=== PATIENT | male | born 1985 | race Hispanic/Latino ===

== ENCOUNTER 2023-03-08 18:00 | Emergency (ER) | payer OTHER ==
--- OUTSIDE RECORDS SUMMARY | 2023-03-08 18:03 | XMS REPORT | Continuity of Care Document ---
:1985 Author Organization [facility] t Address [address] [id number] Care Team Providers Name Role Phone Mariana Sainz Primary Care Physician Loy Grier MD Attending Clinician Mariana Sainz Attending Clinician Tete Lott RN Attending Clinician Unavailable MAYRA DAMON Attending Clinician Unavailable Only, Benjamin Db Test Attending Clinician Unavailable Mayra Benitez Attending Clinician MARIANA SAHA Attending Clinician Unavailable Lab, Ang - Db Attending Clinician Unavailable Doctor Unassigned, [place] Attending Clinician Unavailable GINO ECKERT Attending Clinician Unavailable Vaccine, [place] Samreeni Attending Clinician Unavailable Gino Kulkarni Attending Clinician JACQUELYN PAYTON Attending Clinician Unavailable Jacquelyn Payton MD Attending Clinician Provider, [facility] Attending Clinician Unavailable Elzbieta Kimball RN Attending Clinician Unavailable Lab, [facility] Fam Pob I Attending Clinician Unavailable Payers Payer Name Policy Type Policy Number Effective Date Expiration Date S ource Problems Condition Condition Condition Status Onset Resolution Last Treating Co mments Source Name Details Category Date Date Treatment Clinician Date No known No known Disease Unive rs active active ity of problems problems [facility] Allergies, Adverse Reactions, Alerts Allergy Allergy Status Severity Reaction(s) Onset Inactive Treating Comm ents Source Name Type Date Date Clinician IODINE DRUG Active Swelling Univers INGREDI 06-15 ity of 00:00: [place] 00 Medical Branch SHRIMP DRUG Active Swelling Univers INGREDI 06-15 ity of 00:00: [place] 00 Medical Branch Iodine Propensi Active Swelling Univer s ty to 06-15 ity of adverse 00:00: [place] reaction 00 Medical s Branch Shrimp Propensi Active Swelling Univer s ty to 06-15 ity of adverse 00:00: [place] reaction 00 Medical s Branch Social History Social Habit Start Date Stop Date Quantity Comments Source History SDOH University o f Alcohol Frequency [facility] edical Branch History SDOH University o f Alcohol Std [place] Medical Drinks Branch History SDMN University o f Alcohol Binge [place] Medic al Branch Alcohol intake 2022-04-10 2022-04-10 .29 /d University of 00:00:00 00:00:00 [facility] Exposure to 2022-03-19 2022-03-29 Not sure University of SARS-CoV-2 00:00:00 09:29:00 [facility] (event) Branch Tobacco use and 2016-06-15 2016-06-15 Smokeless tobacco Un iversity of exposure 00:00:00 00:00:00 non-user [facility] Alcohol Comment 2016-06-15 2016-06-15 occ Universit y of 00:00:00 00:00:00 [facility] History of 2013-06-15 Cigarette Smoker Universi ty of tobacco use 00:00:00 [facility] Sex [birth year] Universit y of 00:00:00 00:00:00 [facility] Smoking Status Start Date Stop Date Source Ex-smoker 2016-06-15 00:00:00 2016-06-15 00:00:00 Universi ty of [facility] Medications Ordered Filled Start Stop Current Ordering Indication Dosage Frequency Signature Comments Components Source Medication Medication Date Date Medication? Clinician (SIG) Name Name LOSARTAN 50 2021-09 Yes [id number] TAKE 1 Univers mg tablet 1-21 TABLET BY ity o f 00:00: MOUTH [place] 00 EVERY Medical MORNING Branch LOSARTAN 50 2021-0 Yes [id number] 50mg TAKE 1 Univers mg tablet 7-13 TABLET BY ity o f 00:00: MOUTH IN [place] 00 THE Medical MORNING Branch LOSARTAN 50 2022-0 Yes [id number] 50mg TAKE 1 Univers mg tablet 7-13 TABLET BY ity o f 00:00: MOUTH IN [place] 00 THE Medical MORNING Branch LOSARTAN 50 2021-0 2021- No [id number] 50mg TAKE 1 Univers mg tablet 7-13 11-21 TABLET BY ity of 00:00: 00:00 MOUTH IN [place] 00 :00 THE Medical MORNING Branch losartan 50 0 Yes [id number] 50mg Take 1 Univers mg tablet 7-12 tablet by ity o f 00:00: mouth in [place] 00 the Medical morning. Branch losartan 50 0 2021- No [id number] 50mg Take 1 Univers mg tablet 7-12 07-13 tablet by ity of 00:00: 00:00 mouth in [place] 00 :00 the Medical morning. Branch losartan 50 0 Yes [id number] 50mg Take 1 Univers mg tablet 6-10 tablet by ity o f 00:00: mouth [place] 00 daily. Medical Branch losartan 50 0 Yes [id number] 50mg Take 1 Univers mg tablet 6-10 tablet by ity o f 00:00: mouth [place] 00 daily. Medical Branch losartan 50 0 Yes [id number] 50mg Take 1 Univers mg tablet 6-10 tablet by ity o f 00:00: mouth [place] 00 daily. Medical Branch losartan 50 2021-0 2021- No [id number] 50mg Take 1 Univers mg tablet 6-10 07-12 tablet by ity of 00:00: 00:00 mouth [place] 00 :00 daily. Medical Branch losartan 50 2021-0 Yes [id number] 50mg Take 1 Univers mg tablet 4-22 tablet by ity o f 00:00: mouth [place] 00 daily. Medical Branch losartan 50 0 Yes [id number] 50mg Take 1 Univers mg tablet 4-22 tablet by ity o f 00:00: mouth [place] 00 daily. Medical Branch losartan 50 2021-0 Yes [id number] 50mg Take 1 Univers mg tablet 4-22 tablet by ity o f 00:00: mouth [place] 00 daily. Medical Branch losartan 50 2021-0 2021- No [id number] 50mg Take 1 Univers mg tablet 4-22 06-10 tablet by ity of 00:00: 00:00 mouth [place] 00 :00 daily. Medical Branch Immunizations Ordered Filled Immunization Date Status Comments [facility] e Immunization Name Name SARS-COV-2 COVID-19 2021-06-15 Completed Unive rsity of PFIZER VACCINE 00:00:00 [facility] SARS-COV-2 COVID-19 2021-06-15 Completed Unive rsity of PFIZER VACCINE 00:00:00 [facility] Branch SARS-COV-2 COVID-19 2021-06-15 Completed Unive rsity of PFIZER VACCINE 00:00:00 [facility] Branch SARS-COV-2 COVID-19 2021-06-15 Completed Unive rsity of PFIZER VACCINE 00:00:00 [facility] Branch SARS-COV-2 COVID-19 2021-06-15 Completed Unive rsity of PFIZER VACCINE 00:00:00 [facility] Branch SARS-COV-2 COVID-19 2021-06-15 Completed Unive rsity of PFIZER VACCINE 00:00:00 [facility] SARS-COV-2 COVID-19 2021-06-15 Completed Unive rsity of PFIZER VACCINE 00:00:00 [facility] Branch SARS-COV-2 COVID-19 2021-06-15 Completed Unive rsity of PFIZER VACCINE 00:00:00 [facility] Branch SARS-COV-2 COVID-19 2021-06-15 Completed Unive rsity of PFIZER VACCINE 00:00:00 [facility] Branch SARS-COV-2 COVID-19 2021-06-15 Completed Unive rsity of PFIZER VACCINE 00:00:00 [facility] SARS-COV-2 COVID-19 2021-05-25 Completed Unive rsity of PFIZER VACCINE 00:00:00 [facility] Branch SARS-COV-2 COVID-19 2021-05-25 Completed Unive rsity of PFIZER VACCINE 00:00:00 [facility] Branch SARS-COV-2 COVID-19 2021-05-25 Completed Unive rsity of PFIZER VACCINE 00:00:00 [facility] Branch SARS-COV-2 COVID-19 2021-05-25 Completed Unive rsity of PFIZER VACCINE 00:00:00 [facility] SARS-COV-2 COVID-19 2021-05-25 Completed Unive rsity of PFIZER VACCINE 00:00:00 [facility] Branch SARS-COV-2 COVID-19 2021-05-25 Completed Unive rsity of PFIZER VACCINE 00:00:00 [facility] SARS-COV-2 COVID-19 2021-05-25 Completed Unive rsity of PFIZER VACCINE 00:00:00 [facility] SARS-COV-2 COVID-19 2021-05-25 Completed Unive rsity of PFIZER VACCINE 00:00:00 [facility] SARS-COV-2 COVID-19 2021-05-25 Completed Unive rsity of PFIZER VACCINE 00:00:00 [facility] SARS-COV-2 COVID-19 2021-05-25 Completed Unive rsity of PFIZER VACCINE 00:00:00 [facility] TDAP 2015-01-19 Completed University of 00:00:00 [facility] TDAP 2015-01-19 Completed University of 00:00:00 [facility] TDAP 2015-01-19 Completed University of 00:00:00 [facility] TDAP 2015-01-19 Completed University of 00:00:00 [facility] TDAP 2015-01-19 Completed University of 00:00:00 [facility] TDAP 2015-01-19 Completed University of 00:00:00 [facility] TDAP 2015-01-19 Completed University of 00:00:00 [facility] TDAP 2015-01-19 Completed University of 00:00:00 [facility] TDAP 2015-01-19 Completed University of 00:00:00 [facility] TDAP 2015-01-19 Completed University of 00:00:00 [facility] Vital Signs Vital Name Observation Time Observation Value Comments Source Systolic blood 2022-01-19 18:52:00 159 mm[Hg] Univer sity of [place] pressure [facility] Branch Diastolic blood 2022-01-19 18:52:00 100 mm[Hg] Unive rsity of [place] [facility] Oxygen saturation 2022-01-19 18:16:00 99 /min [facility] in Arterial blood Medical Br [facility] by Pulse oximetry Heart rate 2022-01-19 18:16:00 81 /min [facility] Body height 2022-01-19 18:16:00 170.2 cm [facility] Body weight 2022-01-19 18:16:00 109.09 kg [facility] BMI 2022-01-19 18:16:00 37.67 kg/m2 [facility] Procedures This patient has no known procedures. Encounters Start End Encounter Admission Attending Care Care Encounter Source Date/Time Date/Time Type Type Clinicians Facility Department ID 2022-08-20 2022-08-20 [facility] [id number] [id number] Univers 00:00:00 00:00:00 Loy [facility] 350.1.13.10 it y [facility] 4.2.7.2.686 Zack as GINETTE?BLEA [phone] [address] MEDICAL OFFICE [facility] 2022-05-13 2022-05-13 [facility] [id number] Univers 00:00:00 00:00:00 Loy HEALTH 350.1.13.10 it y of [place] 4.2.7.2.686 Zack as GINETTE?BLEA [id number] [address] OFFICE [facility] 2022-04-10 2022-04-10 [facility] 1.2.840.114 [id number] Univers 00:00:00 00:00:00 Mariana HEALTH 350.1.13.10 it y of [place] 4.2.7.2.686 Zack as GINETTE?BLEA [phone] [address] OFFICE [facility] 2022-04-10 2022-04-10 [facility] [id number] Univers 00:00:00 00:00:00 Loy HEALTH 350.1.13.10 it y of [place] 4.2.7.2.686 Zack as GINETTE?BLEA [id number] [address] MEDICAL OFFICE [facility] 2022-03-30 2022-03-30 DEMI Pinon 1.2.840.114 [id number] Univers 00:00:00 00:00:00 (Out) Tete LUGO 350.1.13.10 it y of HOSPITAL 4.2.7.2.686 Zack as [phone] [address] 2022-03-29 2022-03-29 Outpatient Faizan DAMON [facility] [id number] Univers 09:30:00 10:00:26 MAYRA ity [facility] 2022-03-29 2022-03-29 Laboratory Only, Ang Db Test [facility] 1.2.8 40.114 [id number] Univers 09:30:00 09:45:00 Only GreenMayra HEALTH 350.1.13.10 ity of [place] 4.2.7.2.686 Zack as GINETTE?BLEA [id number] Mi bettie [place] [address] [facility] OFFICE [facility] 2022-03-09 2022-03-09 Refill Maria A [facility] 1.2.840.114 [id number] Univers 00:00:00 00:00:00 Mariana HEALTH 350.1.13.10 it y of [place] 4.2.7.2.686 Zack as GINETTE?BLEA [id number] Mi bettie ORTIZ [address] [facility] 2022-02-16 2022-02-16 Outpatient R MARIA A [facility] [id number] Univers 08:30:00 08:30:00 MARIANAJULIAN flores [facility] 2022-02-16 2022-02-16 Outpatient R MARIA [facility] [id number] Univers 08:30:00 08:30:00 MARIANA ulices [facility] 2022-01-26 2022-01-26 Rec[employer]ing [facility] Lab, Ang - Db [facility] 1.2.840.1 [id number] Univers 08:30:00 08:45:00 Visit Mariana Saha 350.1.13.10 ity of [place] 4.2.7.2.686 Zack as GINETTE?BLEA [phone] Mi bettie [facility] [address] [facility] OFFICE [facility] 2022-01-26 2022-01-26 Outpatient R MARIA A [facility] [id number] Univers 08:30:00 08:30:00 MARIANA sandra [facility] 2022-01-26 2022-01-26 Outpatient R MARIA [facility] [id number] Univers 08:30:00 08:30:00 MARIANA sandra [facility] 2022-01-19 2022-01-19 Outpatient R MARIA [facility] [id number] Univers 13:00:00 13:51:38 MARIANA ity of [facility] 2022-01-19 2022-01-19 Office Maria A [facility] 1.2.840.114 [id number] Univers 13:00:00 13:51:38 Visit Mariana [facility] 350.1.13.10 it y of [place] 4.2.7.2.686 Zack as GINETTE?BLEA [phone] Mi dical [address] MEDICAL OFFICE BUILDING 2022-01-19 2022-01-19 Orders Doctor DEMI 1.2.840.114 [id number] Univers 00:00:00 00:00:00 Only Unassigned, BRITTNEY 350.1.13.10 ity of [place] [facility] 4.2.7.2.686 Zack as [phone] [facility] [address] [place] 2021-06-15 2021-06-15 Outpatient R RODRÍGUEZ [facility] [id number] Univers 09:00:00 09:31:28 sandra ASCENCIO of [facility] 2021-06-15 2021-06-15 Imm/Inj Vaccine, [facility] [place] 1.2.840.114 [id number] Univers 08:48:18 08:58:18 Visit Gino Eckert 350.1.13. 10 ity of Pediatric 4.2.7.2.686 [facility] [phone] [facility] [address] [place] 2021-05-25 2021-05-25 Outpatient R TATA [facility] [id number] Univers 10:20:00 11:26:33 JACQUELYN flores [facility] 2021-05-25 2021-05-25 Imm/Inj Vaccine, [facility] [place] 1.2.840.114 [id number] Univers 11:06:36 11:16:36 Visit Jacquelyn Payton 350.1.13. 10 ity of [facility] 4.2.7.2.686 [facility] [id number] [address] 2020-05-27 2020-05-27 Letter Provider, [facility] [id number] Univers 00:00:00 00:00:00 (Out) Ang [facility] 350.1.13.10 ity of Care Surgical 4.2.7.2.686 Zack as Specialti [phone] Mi dical es [address] [facility] 2020-05-18 2020-05-18 Letter DEMI Kimball 1.2.840.114 [id number] Univers 00:00:00 00:00:00 (Out) Elzbieta LUGO 350.1.13.10 it y of [facility] 4.2.7.2.686 Zack as [id number] [address] 2020-05-16 2020-05-16 Laboratory Lab, [facility] Po I [facility] 1.2. 840.114 [id number] Univers 13:17:11 13:37:11 Only Mariana S[facility] 350.1.13.10 ity of [place] 4.2.7.2.686 Zack as Professio [phone] Mi dical nal [address] [place] Office Building [facility] 2020-05-16 2020-05-16 Outpatient R [facility] [id number] Univers 13:20:00 13:20:00 ity of [facility] 2020-05-06 2020-05-06 Laboratory Lab, [facility] I [facility] 1.2. 840.114 [id number] Univers 16:41:18 17:01:18 Only Mariana Saha 350.1.13.10 ity of [place] 4.2.7.2.686 Zack as Professio [phone] Mi dical nal [address] [place] [address] [facility] 2020-05-06 2020-05-06 Outpatient R [facility] [id number] Univers 16:40:00 16:40:00 ity of [facility] Results This patient has no known results.
[2023-03-08 20:09] LABS: Specific Gravity 1.029 (1.005-1.030); Urine Bacteria <20 /HPF (<20); Urine Bilirubin NEGATIVE (Negative); Urine Blood 2+ (Negative); Urine Clarity Extremely Turbid (Clear); Urine Color Yellow (Yellow); Urine Glucose NEGATIVE (Negative); Urine Mucus 2+ /HPF (None Seen); Urine Protein 1+ (Negative); Urine RBC >50 /HPF (None Seen); Urine Sperm Present (None Seen); Urine Urobilinogen 2+ (Normal)
--- NOTE | 2023-03-08 20:17 | EDPHYS ---
Physician Documentation [facility] Name: Stanley Hutchins Age: 37 yrs Sex: Male : 1985 Arrival Date: 03/08/2023 Time: 18:00 Bed 9 Private MD: ED Physician Mitul Tyler HPI: 03/08 20:43 This 37 yrs old Male presents to ER via Ambulatory with complaints of Back ms3 Pain. 20:43 37-year-old male with past medical history of hypertension, hyperlipidemia presents for ms3 left-sided lower back pain that he rates currently a 4/10. Patient states he took 800 mg ibuprofen with relief of his pain. Patient states his pain was a 9/10 and the ibuprofen decreased the pain to a 4/10. Patient states he did move heavy objects in his attic yesterday. Patient denies bowel or bladder incontinence, fevers, chills, nausea, vomiting, numbness, urinary symptoms. Historical: - Allergies: 18:15 No Known Allergies; ld1 - Home Meds: 18:15 losartan 100 mg oral tablet once [Active]; ld1 18:17 fenofibrate 40 mg oral tablet once [Active]; phentermine 37.5 mg oral capsule once ld1 [Active]; - PMHx: 18:15 Hypertensive disorder; ld1 18:17 Hypercholesterolemia; ld1 - PSHx: 18:15 None; ld1 - Immunization history:: Adult Immunizations up to date, Client reports receiving the 2nd dose of the Covid vaccine. - Social history:: Smoking status: Patient denies any tobacco usage or history of. Patient/guardian denies using alcohol. ROS: 20:43 Constitutional: Negative for fever, and chills. Neck: Negative for injury, pain, and ms3 swelling, Cardiovascular: Negative for chest pain, and palpitations. Respiratory: Negative for shortness of breath, cough, wheezing, and pleuritic chest pain, Abdomen/GI: Negative for abdominal pain, nausea, vomiting, diarrhea, and constipation. 20:43 : Negative for injury, bleeding, discharge, and swelling, Skin: Negative for injury, rash, and discoloration, Neuro: Negative for headache, weakness, numbness, tingling. 20:43 Back: Positive for Low back pain. Exam: 20:43 Constitutional: This is a well developed, well nourished patient who is awake, alert, ms3 and in no acute distress. Head/Face: Normocephalic, atraumatic. Neck: Trachea midline, no cervical lymphadenopathy. Supple, full range of motion without nuchal rigidity, or vertebral point tenderness. No Meningismus. Chest/axilla: Normal chest wall appearance and motion. Nontender with no deformity. Cardiovascular: Regular rate and rhythm with a normal S1 and S2. No gallops, murmurs, or rubs. Normal PMI, no JVD. No pulse deficits. Respiratory: Lungs have equal breath sounds bilaterally, clear to auscultation and percussion. No rales, rhonchi or wheezes noted. No increased work of breathing, no retractions or nasal flaring. Abdomen/GI: Soft, non-tender, with normal bowel sounds. No distension or tympany. No guarding or rebound. No evidence of tenderness throughout. Back: No spinal tenderness. No costovertebral tenderness. Full range of motion. Skin: Warm, dry with normal turgor. Normal color with no rashes, no lesions, and no evidence of cellulitis. MS/ Extremity: Pulses equal, no cyanosis. Neurovascular intact. Full, normal range of motion. Vital Signs: 18:17 BP 136 / 97; Pulse 88; Resp 18; Temp 97.6(TE); Pulse Ox 100% on R/A; Weight 98.43 kg; ld1 Height 5 ft. 7 in. ; Pain 4/10; 18:17 Body Mass Index 33.99 (98.43 kg, 170.18 cm) ld1 18:17 Pain Scale: Adult ld1 MDM: 18:30 Patient medically screened. ms3 20:43 Differential diagnosis: sprain, Ureterolithiasis. Data reviewed: vital signs, nurses ms3 notes, and as a result, I will discharge patient. Counseling: I had a detailed discussion with the patient and/or guardian regarding: the historical points, exam findings, and any diagnostic results supporting the discharge/admit diagnosis, lab results, the need for outpatient follow up, to return to the emergency department if symptoms worsen or persist or if there are any questions or concerns that arise at home. ED course: Patient left the emergency department prior to discharge papers being handed to him. Patient was called and verbal discharge instructions were given. Patient states his pain has resolved at this time. Instructed patient to follow-up with his primary care physician as his urine shows greater than 50 red blood cells. Patient understands and agrees with plan. All questions were answered. Return precautions discussed include worsening symptoms, fevers, chills, nausea, vomiting, incontinence, or any other concerns.. 03/08 18:30 Order name: Urinalysis W/Microscopic; Complete Time: 20:11 ms3 Administered Medications: 03/09 08:00 Not Given (Patient Refused): Cyclobenzaprine PO 10 mg PO once pf1 08:00 Not Given (Patient Refused): Ibuprofen PO 600 mg PO once pf1 Disposition Summary: 03/08/23 20:16 Discharge Ordered Location: Home ms3 Condition: Stable ms3 Diagnosis - Hematuria, unspecified ms3 - Low back pain ms3 Followup: ms3 - With: Private Physician - When: 2 - 3 days - Reason: Recheck today's complaints Discharge Instructions: - Discharge Summary Sheet ms3 - Acute Back Pain, Adult ms3 - Hematuria, Adult ms3 Forms: - Medication Reconciliation Form ms3 - Thank You Letter ms3 - Antibiotic Education ms3 - Prescription Opioid Use ms3 Prescriptions: - Ibuprofen 600 mg Oral Tablet - take 1 tablet by ORAL route every 6 hours As needed take with food; 30 tablet; ms3 Refills: 0, Product Selection Permitted - Cyclobenzaprine 5 mg Oral Tablet - take 1 tablet by ORAL route 3 times per day As needed; 15 tablet; Refills: 0, ms3 Product Selection Permitted Signatures: Dispatcher [employer] EDSC Mitul Tyler, DO ms3 Lucie Tyler RN RN ld1 Shakira Briseno RN pf1
--- NOTE | 2023-03-08 20:17 | ER ---
Nurse's Notes [facility] Name: Stanley Hutchins Age: 37 yrs Sex: Male : 1985 Arrival Date: 03/08/2023 Time: 18:00 Bed 9 Private MD: Diagnosis: Hematuria, unspecified;Low back pain Presentation: 03/08 18:17 Chief complaint: Patient states: Left flank pain since this morning. Denies urinary ld1 symptoms. Coronavirus screen: At this time, the client does not indicate any symptoms associated with coronavirus-19. Ebola Screen: No symptoms or risks identified at this time. Initial Sepsis Screen: Does the patient meet any 2 criteria? No. Patient's initial sepsis screen is negative. Does the patient have a suspected source of infection? No. Patient's initial sepsis screen is negative. Risk Assessment: Do you want to hurt yourself or someone else? Patient reports no desire to harm self or others. Onset of symptoms was March 08, 2023 at 18:19. 18:17 Method Of Arrival: Ambulatory ld1 18:17 Acuity: ALISIA 3 ld1 Triage Assessment: 18:15 General: Appears in no apparent distress. comfortable, Behavior is calm, cooperative, ld1 appropriate for age. Pain: Complains of pain in left low back Pain does not radiate. Pain currently is 8 out of 10 on a pain scale. Quality of pain is described as throbbing. EENT: No signs and/or symptoms were reported regarding the EENT system. Neuro: Level of Consciousness is awake, alert, obeys commands, Oriented to person, place, time, situation. Cardiovascular: Capillary refill < 3 seconds Patient's skin is warm and dry. Respiratory: Airway is patent Respiratory effort is even, unlabored. GI: Abdomen is flat, non-distended. : No signs and/or symptoms were reported regarding the genitourinary system. Derm: No signs and/or symptoms reported regarding the dermatologic system. Musculoskeletal: Range of motion: intact in all extremities. Historical: - Allergies: 18:15 No Known Allergies; ld1 - Home Meds: 18:15 losartan 100 mg oral tablet once [Active]; ld1 18:17 fenofibrate 40 mg oral tablet once [Active]; phentermine 37.5 mg oral capsule once ld1 [Active]; - PMHx: 18:15 Hypertensive disorder; ld1 18:17 Hypercholesterolemia; ld1 - PSHx: 18:15 None; ld1 - Immunization history:: Adult Immunizations up to date, Client reports receiving the 2nd dose of the Covid vaccine. - Social history:: Smoking status: Patient denies any tobacco usage or history of. Patient/guardian denies using alcohol. Screenin:00 [facility] ED Fall Risk Assessment (Adult) History of falling in the last 3 months, pf1 including since admission No falls in past 3 months (0 pts) Confusion or Disorientation No (0 pts) Intoxicated or Sedated No (0 pts) Impaired Gait No (0 pts) Mobility Assist Device Used No (0 pt) Altered Elimination No (0 pt) Score/Fall Risk Level 0 - 2 = Low Risk Oriented to surroundings, Maintained a safe environment, Educated pt \T\ family on fall prevention, incl call for assistance when getting out of bed, Assessed \T\ reinforced patient's understanding of fall precautions, Provided non-skid footwear, Hourly rounding (assess needs \T\ fall precautionary measures) done, Used ambulatory aids as needed (educated on \T\ assisted with), Used gait belt as appropriate. 19:00 Abuse screen: Denies threats or abuse. Nutritional screening: No deficits noted. pf1 Tuberculosis screening: No symptoms or risk factors identified. Assessment: 19:20 General: Appears in no apparent distress. comfortable, well groomed, well developed, pf1 Behavior is calm, cooperative, appropriate for age, quiet. 19:20 Pain: Complains of pain in left low back. Neuro: No deficits noted. Level of pf1 Consciousness is awake, alert, obeys commands, Oriented to person, place, time, situation. Cardiovascular: No deficits noted. Capillary refill < 3 seconds Patient's skin is warm and dry. Respiratory: No deficits noted. Airway is patent Respiratory effort is even, unlabored, Respiratory pattern is regular, symmetrical. GI: No deficits noted. No signs and/or symptoms were reported involving the gastrointestinal system. : No deficits noted. No signs and/or symptoms were reported regarding the genitourinary system. EENT: No deficits noted. No signs and/or symptoms were reported regarding the EENT system. Derm: No deficits noted. No signs and/or symptoms reported regarding the dermatologic system. Musculoskeletal: Reports pain in left low back. Vital Signs: 18:17 BP 136 / 97; Pulse 88; Resp 18; Temp 97.6(TE); Pulse Ox 100% on R/A; Weight 98.43 kg; ld1 Height 5 ft. 7 in. ; Pain 4/10; 18:17 Body Mass Index 33.99 (98.43 kg, 170.18 cm) ld1 18:17 Pain Scale: Adult ld1 ED Course: 18:01 Patient arrived in ED. ts1 18:06 Mitul Tlyer DO is Attending Physician. ms3 18:19 Triage completed. ld1 18:19 Arm band placed on right wrist. ld1 19:00 Patient has correct armband on for positive identification. Bed in low position. Call pf1 light in reach. 22:00 No provider procedures requiring assistance completed. pf1 22:00 Patient did not have IV access during this emergency room visit. pf1 Administered Medications: 03/09 08:00 Not Given (Patient Refused): Cyclobenzaprine PO 10 mg PO once pf1 08:00 Not Given (Patient Refused): Ibuprofen PO 600 mg PO once pf1 Medication: 03/08 19:20 VIS not applicable for this client. pf1 Outcome: 20:16 Discharge ordered by MD. ms3 22:00 Discharged to home ambulatory. pf1 22:00 Condition: improved 22:00 Discharge instructions given to patient, Instructed on discharge instructions, follow pf1 up and referral plans. Demonstrated understanding of instructions, follow-up care, medications, Prescriptions given X 2. 22:00 Patient left the ED. pf1 Signatures: Mitul Tyler DO DO ms3 Lucie Tyler RN RN ld1 Shakira Briseno RN RN pf1 Otilia Nazario PAS PAS ts1 Corrections: (The following items were deleted from the chart) 03/09 07:59 03/08 22:32 Patient left the ED. pf1 pf1
[2023-03-08 23:24] VITALS: BP 136/97; TEMP 97.6; O2SAT 100
== END 2023-03-08 22:32 | disposition home or self-care (01) ==
LOC: ER 18:00
DX: R31.9 Hematuria, unspecified (principal); M54.50 Low back pain, unspecified; I10 Essential (primary) hypertension; E78.00 Pure hypercholesterolemia, unspecified
CPT/HCPCS: 81001; 99283